=== PATIENT | male | born 1970 | race Caucasian/White ===

== ENCOUNTER → 2019-04-17 | Outpatient (CLI) | payer OTHER ==
[~2019-04-17] MED LIST: ALBU90I INH; CEPH500 PO; HYDACE5 PO; NAPR500 PO; NAPR550 PO; RXHYDACE PO; RXNAPNA550 PO
[2019-04-17 19:35] LABS: Percent Saturation 46.4 % (20.0-50.0)
== END | disposition home or self-care (01) ==
LOC: LAB 16:00 → LAB SHORT 16:00
PROVIDERS: Internal Medicine Hematology & Oncology
DX: D50.9 Iron deficiency anemia, unspecified (principal)
CPT/HCPCS: 82607; 82728; 82746; 83540; 83550

== ENCOUNTER → 2019-10-19 | Outpatient (CLI) | payer OTHER ==
[2019-10-19 16:20] LABS: Alanine Aminotransfer (ALT/SGP 62 U/L (12-78); Albumin, Blood 3.7 g/dL (3.4-5.0); Albumin/Globulin Ratio 1.2 (0.8-1.8); Alk Phos 54 U/L (50-136); Anion Gap 7 mmol/L (6-16); Aspartate Aminotrans (AST/SGOT 32 U/L (12-37); Bilirubin, Total 0.5 mg/dL (0.1-1.0); Blood Urea Nitrogen 14 mg/dL (8-24); CO2, Blood 28 mmol/L (21-32); Calcium, Blood 8.7 mg/dL (8.5-10.1); Chloride, Blood 107 mmol/L (98-108); Creatinine, Blood 0.93 mg/dL (0.60-1.20); Globulin, Blood 3.1 g/dL (2.2-4.0); Glomerular Filtration Rate >60 (60-); Glucose, Blood 116 mg/dL (70-99); Potassium, Blood 3.6 mmol/L (3.5-5.5); Sodium, Blood 142 mmol/L (136-145); Total Protein, Blood 6.8 g/dL (6.4-8.2)
== END | disposition home or self-care (01) ==
LOC: LAB 15:33 → LAB SHORT 15:33
PROVIDERS: Internal Medicine Hematology & Oncology
DX: C92.10 Chronic myeloid leukemia, BCR/ABL-positive, not having achieved remission (principal)
CPT/HCPCS: 80053

== ENCOUNTER → 2025-02-27 | Outpatient (CLI) | payer OTHER ==
[~2025-02-27] MED LIST changes: +DOXY100 PO
[2025-02-27 18:18] LABS: Prostate Specific Antigen 0.589 ng/mL (0.000-4.000)
== END | disposition home or self-care (01) ==
LOC: LAB SHORT 15:36 → LAB 15:36
PROVIDERS: Internal Medicine Hematology & Oncology
DX: E53.8 Deficiency of other specified B group vitamins (principal)
CPT/HCPCS: 82607; G0103

== ENCOUNTER 2025-07-26 08:16 | Inpatient (IN) | payer MEDICARE, OTHER ==
[2025-07-26] VITALS (14 sets, daily range): BP systolic 113–169; BP diastolic 62–116
[~2025-07-26] VITALS: Ht 180.3 cm; Wt 87.1 kg
--- NOTE | 2025-07-26 08:40 | NUR ---
Wheelchaired into Day Surgery. History, Chart, Medications and Allergies reviewed before start of procedure. Pre-Op teaching done. Pt verbalizes understanding. Patient States Post-Procedure ride home has been arranged.
[2025-07-26] MEDS ORDERED: Rocuronium Bromide 10 MG/ML 5ML Injection IV ONE (09:12)
[2025-07-26] MEDS ORDERED: Midazolam HCl 1MG / ML 2ML Vial ONE (09:12)
[2025-07-26] MEDS ORDERED: FentaNYL Citrate 50 MCG/ML 2 ML Injection ONE ×2 (09:12→11:44)
[2025-07-26] MEDS ORDERED: CeFAZolin Sodium 2,000 MG in NS 100 ML IV SCH ×2 (09:25→18:00)
[2025-07-26] MEDS ORDERED: Ondansetron HCl 2 MG / ML 2ML Vial ONE (09:49)
[2025-07-26] MEDS ORDERED: Dexamethasone Sod Phos 10 MG/ML 1ML VIAL ONE (09:49)
[2025-07-26] MEDS ORDERED: CeFAZolin Sodium 1000 mg Vial ONE (09:49)
[2025-07-26] MEDS ORDERED: Ketorolac Tromethamine 30mg Vial ONE (09:50)
[2025-07-26] MEDS ORDERED: HYDROmorphone HCl/Pf 1MG SYR ONE ×2 (10:17→11:45)
[2025-07-26] MEDS ORDERED: HYDROmorphone HCl/Pf 1MG SYR IV PRN ×2 (10:30)
[2025-07-26] MEDS ORDERED: FentaNYL Citrate 50 MCG/ML 2 ML Injection IV PRN ×2 (10:30)
[2025-07-26] MEDS ORDERED: Ondansetron HCl 2 MG / ML 2ML Vial IV PRN (10:30)
[2025-07-26] MEDS ORDERED: Tranexamic Acid 100 ML IV ONE (10:55)
[2025-07-26] MEDS ORDERED: Bupivacaine 0.5% HCl 5 MG/ML 30MLVIAL ONE (11:46)
[2025-07-26] MEDS ORDERED: Meperidine HCl 50 MG/ML 1ML Injection IV ONE (12:00)
[2025-07-26] MEDS ORDERED: LORazepam 2 MG/ML 1ML Injection ONE (12:02)
[2025-07-26] MEDS ORDERED: LORazepam 2 MG/ML 1ML Injection IV ONE (12:05)
[2025-07-26] MEDS ORDERED: NS 1,000 ML IV SCH (12:10)
[2025-07-26] MEDS ORDERED: FLU VACC TS2025-26(6MOS UP)/PF 45 MCG/0.5 ML SYRINGE IM SCH (12:15)
[2025-07-26] MEDS ORDERED: Magnesium Hydroxide Conc 10 ML UDC PO PRN (12:15)
[2025-07-26] MEDS ORDERED: Tranexamic Acid 100 ML IV SCH (12:25)
[2025-07-27] MEDS ORDERED: Ketorolac Tromethamine 15mg Vial IV PRN (00:50)
[2025-07-27] MEDS ORDERED: HYDROmorphone HCl/Pf 1MG SYR IV PRN (00:55)
[2025-07-27] MEDS ORDERED: FentaNYL Citrate 50 MCG/ML 2 ML Injection IV ONE (01:00)
[2025-07-27] MEDS ORDERED: Naloxone HCl 0.4MG / ML 1ML Vial IV PRN (01:10)
[2025-07-27 04:42] LABS: BASOPHILS ABSOLUTE AUTO 0.02 K/mm3 (0.00-0.23); BASOPHILS PERCENT AUTO 0 % (0-2); EOSINOPHILS ABSOLUTE AUTO 0.00 K/mm3 (0.00-0.68); EOSINOPHILS PERCENT AUTO 0 % (0-6); Hematocrit 32.0 % (37.0-53.0); Hemoglobin 10.5 g/dL (13.5-17.5); IMMATURE GRAN ABSOLUTE AUTO 0.05 K/mm3 (0.00-0.10); IMMATURE GRAN PERCENT AUTO 0 % (0-1); LYMPHOCYTES ABSOLUTE AUTO 1.38 K/mm3 (0.84-5.20); LYMPHOCYTES PERCENT AUTO 10 % (21-46); MONOCYTES ABSOLUTE AUTO 0.75 K/mm3 (0.16-1.47); MONOCYTES PERCENT AUTO 6 % (4-13); Mean Corpuscular HGB Conc 32.8 g/dL (31.5-36.5); Mean Corpuscular Volume 94 fL (80-100); NEUTROPHILS ABSOLUTE AUTO 11.29 K/mm3 (1.96-9.15); NEUTROPHILS PERCENT AUTO 84 % (41-73); NRBC ABSOLUTE 0.00 K/mm3 (0.00-0.02); NRBC Auto 0.0 /100 WBC (0.0-0.2); Platelet Count 171 K/mm3 (150-400); RDW Coefficient Variation 13.4 % (11.7-14.2); RDW Standard Deviation 46.5 fL (35.1-46.3)
[2025-07-27 05:09] LABS: Anion Gap 6.0 mmol/L (3-11); Blood Urea Nitrogen 13.0 mg/dL (8-24); CO2, Blood 25.0 mmol/L (21-32); Calcium, Blood 8.1 mg/dL (8.5-10.1); Chloride, Blood 110.0 mmol/L (98-108); Creatinine, Blood 0.63 mg/dL (0.60-1.20); Glucose, Blood 119.0 mg/dL (70-99); Potassium, Blood 3.4 mmol/L (3.5-5.5); Sodium, Blood 138.0 mmol/L (136-145)
--- NOTE | 2025-07-27 06:12 | NUR ---
SHIFT SUMMARY AOX4. POD 1-R BKA. PT REPORTS PAIN 8-10. PT HAD DIFFICULTY MANAGING PAIN T/O NIGHT. PT W/ONLY 10MG PO OXY @[facility] & STATED THAT ALONE WASNT MANAGING PAIN, CONSULTED MACY PER DR CAMARILLO ORDER. [facility] ORDERED TYLENOL, TORADOL & IV DILAUDID PRN. STUMP SOCK IN PLACE, NO DRAINAGE NOTED ON SHIFT. PT ABLE TO RAISE R STUMP OFF BED. DENIES N/T. THIGH CAP REFILL <3 SEC, UNABLE TO ASSESS CAP ON BKA R/T DRESSING. PT ABLE TO TRANSFER SELF TO W/C SAFELY ONCE SET UP. TOLERATING PO, VOIDING LOTS. CALL LIGHT IN REACH & PT ABLE TO MAKE NEEDS KNOWN.
[2025-07-27 07:39] VITALS: BP 106/60
[2025-07-27] MEDS ORDERED: OXAYDO5 M1 PO (11:26)
--- NOTE | 2025-07-27 11:49 | NUR ---
DISCHARGE PT AND SPOUSE EDUCATED ON AND RECEIVED PRINTED DISCHARGE INSTRUCTIONS AND VERBALIZED AN UNDERSTANDING. SPOUSE FILLED RX. PT REPORTS HAVING A F/U APPT ON Tuesday07/29/25. IV DC'D. PT AND SPOUSE GATHERED ALL PERSONAL BELONGINGS AND ESCORTED OUT VIA W/C.
== END 2025-07-27 11:54 | disposition home or self-care (01) | DRG 476 ==
LOC: SURS 08:16
PROVIDERS: ADMIT Orthopaedic Surgery
PROC: 0Y6H0Z2 Detachment at Right Lower Leg, Mid, Open Approach (ICD-10-PCS; principal; 2025-07-26 09:30)
DX: M14.671 Charcot's joint, right ankle and foot (principal); Z85.6 Personal history of leukemia; G89.18 Other acute postprocedural pain; Z87.891 Personal history of nicotine dependence; Z89.422 Acquired absence of other left toe(s)
CPT/HCPCS: 36415; 80048; 85025; 88307; 88311; A9270; J0690; J1100; J1171; J1885; J2060; J2250; J2405; J2704; J3010; J7120